=== PATIENT | male | born 1970 | race American Indian/Alaskan Native ===

== ENCOUNTER 2016-09-24 09:25 | Day surgery (SDC) | payer OTHER ==
[2016-09-21 13:45] VITALS: BMI 41.8
[2016-09-24] MEDS ORDERED: LIDOCAINE HCL/PF 1% SDV 5ML VIAL ONE (09:35)
[2016-09-24] MEDS ORDERED: PROPOFOL 20 ML ONE ×2 (09:37)
[2016-09-24 10:30] VITALS: TEMP 97.9
[2016-09-24 13:02] VITALS: BP 123/76; PULSE 70
--- NOTE | 2016-09-25 11:55 | PATH ---
Surgical Pathology Report Patient Name: LILLY SHAW JR [facility]. Rec. #: [id number] /Age/Gender: 1970 (Age: 45) / M Account: [id number] Location: [facility]-ENDOSCOPY Taken: 09/24/2016 Received: 09/24/2016 Reported: 09/25/2016 Physicians: Luis Light M.D. Specimen(s) Received A: BX STOMACH B: BX DISTAL ESOPHAGUS Clinical History GERD Gastritis, reflux, gastroparesis Final Diagnosis A. STOMACH, BIOPSY: GASTRIC FUNDIC MUCOSA WITH FOCAL MILD CHRONIC INFLAMMATION. IMMUNOSTAIN FOR H. PYLORI IS NEGATIVE. B. DISTAL ESOPHAGUS, BIOPSY: SQUAMOUS MUCOSA WITH SUPERFICIAL ULCERATION. NUMEROUS FUNGAL AND YEAST FORMS ARE IDENTIFIED. NO INTESTINAL METAPLASIA IDENTIFIED (NO ARCE'S IDENTIFIED). Electronically Signed Isaac Horner M.D. Gross Description A. Received in formalin, labeled "biopsy stomach" is a hickey, irregular portion of soft tissue measuring 0.3 cm. in greatest dimension. The specimen is submitted in toto in one cassette. B. Received in formalin, labeled "biopsy distal esophagus" are 2 hickey, irregular portions of soft tissue measuring 0.2 and 0.3 cm. in greatest dimension. The specimens are submitted in toto in one cassette. 09/24/201609/24/2016
== END 2016-09-24 11:15 | disposition home or self-care (01) ==
LOC: JASU-ENDO 09:25
PROVIDERS: ATTEND Internal Medicine Gastroenterology
PROC: 0DB68ZX Excision of Stomach, Via Natural or Artificial Opening Endoscopic, Diagnostic (ICD-10-PCS; 2016-09-24)
PROC: 0DB38ZX Excision of Lower Esophagus, Via Natural or Artificial Opening Endoscopic, Diagnostic (ICD-10-PCS; principal; 2016-09-24 10:00)
DX: Z01.818 Encounter for other preprocedural examination (principal); K21.9 Gastro-esophageal reflux disease without esophagitis; K29.70 Gastritis, unspecified, without bleeding; K31.9 Disease of stomach and duodenum, unspecified; E66.01 Morbid (severe) obesity due to excess calories; I10 Essential (primary) hypertension
CPT/HCPCS: 88305-TC; 88342-TC

== ENCOUNTER 2020-07-22 06:13 | Day surgery (SDC) | payer OTHER ==
[2020-07-20 11:26] VITALS: BMI 44.7
[2020-07-22 10:18] VITALS: TEMP 98
[2020-07-22 11:08] VITALS: BP 123/63; PULSE 62
== END 2020-07-22 11:19 | disposition home or self-care (01) ==
LOC: JASU-ENDO 06:13
PROVIDERS: ATTEND Internal Medicine Gastroenterology
PROC: 0DBL8ZX Excision of Transverse Colon, Via Natural or Artificial Opening Endoscopic, Diagnostic (ICD-10-PCS; 2020-07-22)
PROC: 0DBM8ZX Excision of Descending Colon, Via Natural or Artificial Opening Endoscopic, Diagnostic (ICD-10-PCS; 2020-07-22)
PROC: 0DBC8ZX Excision of Ileocecal Valve, Via Natural or Artificial Opening Endoscopic, Diagnostic (ICD-10-PCS; 2020-07-22)
PROC: 0DBK8ZX Excision of Ascending Colon, Via Natural or Artificial Opening Endoscopic, Diagnostic (ICD-10-PCS; principal; 2020-07-22 10:00)
DX: Z12.11 Encounter for screening for malignant neoplasm of colon (principal); D12.2 Benign neoplasm of ascending colon; D12.3 Benign neoplasm of transverse colon; K64.8 Other hemorrhoids; D12.4 Benign neoplasm of descending colon
CPT/HCPCS: 88305-TC

== ENCOUNTER 2021-02-24 05:06 | Day surgery (SDC) | payer OTHER ==
[2021-02-22 16:13] VITALS: BMI 44.4
[2021-02-24] MEDS ORDERED: LIDOCAINE HCL/PF 1% SDV 5ML VIAL ONE (07:26)
[2021-02-24] MEDS ORDERED: BUPIVACAINE HCL/PF 0.75% 10 ML VIAL ONE (07:26)
[2021-02-24] MEDS ORDERED: BUPIVACAINE HCL/PF 0.75% 10 ML VIAL NR ONE (11:11)
[2021-02-24] MEDS ORDERED: LIDOCAINE HCL 1% PRESERVATIVE FREE - 30ML VIAL IJ ONE (11:15)
[2021-02-24 13:04] VITALS: BP 128/66; PULSE 58; TEMP 97.8
== END 2021-02-24 13:00 | disposition home or self-care (01) ==
LOC: JASU-SURG 05:06
PROVIDERS: ATTEND Pain Medicine Pain Medicine
PROC: BR16YZZ Fluoroscopy of Lumbar Facet Joint(s) using Other Contrast (ICD-10-PCS; 2021-02-24)
PROC: 3E0T3BZ Introduction of Anesthetic Agent into Peripheral Nerves and Plexi, Percutaneous Approach (ICD-10-PCS; principal; 2021-02-24 09:45)
DX: M47.816 Spondylosis without myelopathy or radiculopathy, lumbar region (principal); I10 Essential (primary) hypertension
CPT/HCPCS: 76000-TC-FY

== ENCOUNTER 2021-09-15 04:07 | Day surgery (SDC) | payer OTHER ==
[2021-09-13 18:27] VITALS: BMI 43.9
[~2021-09-15 04:07] MED LIST: BUPIVACAINE HCL/PF 0.75% 10 ML VIAL NR ONE; IOHEXOL 180 MG/1 ML ML IJ ONE; LIDOCAINE HCL 1% PRESERVATIVE FREE - 30ML VIAL IJ ONE
[2021-09-15] MEDS ORDERED: LIDOCAINE HCL/PF 1% SDV 5ML VIAL ONE (07:19)
[2021-09-15] MEDS ORDERED: BUPIVACAINE HCL/PF 0.75% 10 ML VIAL ONE (07:19)
[2021-09-15 08:40] VITALS: TEMP 98.9
[2021-09-15] MEDS ORDERED: BUPIVACAINE HCL/PF 0.75% 10 ML VIAL NR ONE (09:45)
[2021-09-15] MEDS ORDERED: LIDOCAINE HCL 1% PRESERVATIVE FREE - 30ML VIAL IJ ONE (09:45)
[2021-09-15 10:05] VITALS: BP 130/80; PULSE 70
== END 2021-09-15 10:06 | disposition home or self-care (01) ==
LOC: JASU-SURG 04:07
PROVIDERS: ATTEND Pain Medicine Pain Medicine
PROC: 3E0T33Z Introduction of Anti-inflammatory into Peripheral Nerves and Plexi, Percutaneous Approach (ICD-10-PCS; 2021-09-15)
PROC: 3E0T3BZ Introduction of Anesthetic Agent into Peripheral Nerves and Plexi, Percutaneous Approach (ICD-10-PCS; principal; 2021-09-15 09:00)
DX: M47.816 Spondylosis without myelopathy or radiculopathy, lumbar region (principal)
CPT/HCPCS: 76000-TC-FY

== ENCOUNTER 2024-09-05 15:29 | Emergency (ER) | payer OTHER ==
[2024-09-05 15:35] VITALS: BP 159/96; PULSE 66; RESP 20; TEMP 98.4; BMI 41.8
[2024-09-05] MEDS ORDERED: KETOROLAC TROMETHAMINE 15 MG/ML VIAL ONE ×2 (16:49→16:51)
[2024-09-05] MEDS: KETOROLAC TROMETHAMINE 30 MG/1 ML VIAL IM ONE (16:57)
[2024-09-05 18:42] LABS: HIV INTERPRETATION NEGATIVE (NEGATIVE)
[2024-09-05] MEDS ORDERED: IBUPROFEN 400 MG TABLET (FP) PO PRN (18:49)
== END 2024-09-05 18:57 | disposition home or self-care (01) ==
LOC: JER 15:29
PROC: 3E0233Z Introduction of Anti-inflammatory into Muscle, Percutaneous Approach (ICD-10-PCS; principal; 2024-09-05)
DX: M25.461 Effusion, right knee (principal)
CPT/HCPCS: 36415; 73562-TC-RT-FY; 86803; 87389; 99284-25